=== PATIENT | female | born 1960 | race Caucasian/White ===

== ENCOUNTER → 2020-12-06 | Day surgery (SDC) | payer MEDICARE ==
[~2020-12-06] MED LIST: ATORVASTATIN CA10 MG PO; COZAAR50 MG PO; CYMBALTA20 MG PO; CYMBALTA60 MG PO; GLUCOTROL10 MG PO; LEVEMIR100 UNIT/1 SC; LEVOXYL100 MCG PO; LYRICA100 MG PO; MOBIC15 MG PO; NEURONTIN800 MG PO; NORVASC2.5 MG PO; NOVOLOG VI100 UNIT/1 SC; PERCOCET 5-3251 EACH PO; REGLAN10 MG PO; TRULICITY0.75 MG/0. SC; VITAMIN D3 COM1 EACH PO
[2020-12-06 07:23] LABS: HCT 38.9 % (37.0-47.0); HGB 13.3 g/dl (12.5-16.0); MCHC 34.2 g/dL (32.0-36.0); MCV 87.6 fL (78.0-100.0); MPV 11.7 fL (6.0-9.5); RBC 4.44 M/uL (4.20-5.40); RDW 12.8 % (11.5-14.0); WBC 8.5 K/uL (4.0-10.5)
[2020-12-06 07:44] LABS: ALBUMIN 3.5 g/dL (3.4-5.0); BILIRUBIN - TOTAL 0.6 mg/dL (0.2-1.0); BUN/CREAT RATIO (CALC) 21.3 RATIO; CREATININE 0.61 mg/dL (0.51-0.95); GLOBULIN (CALCULATION) 4.2 g/dL; POTASSIUM 3.3 mmol/L (3.5-5.1); TOTAL PROTEIN 7.7 g/dL (6.4-8.2)
== END | disposition home or self-care (01) ==
LOC: FAS 06:06
PROVIDERS: Orthopaedic Surgery
DX: G56.03 Carpal tunnel syndrome, bilateral upper limbs (principal); K21.9 Gastro-esophageal reflux disease without esophagitis; E11.43 Type 2 diabetes mellitus with diabetic autonomic (poly)neuropathy; K31.84 Gastroparesis; E03.9 Hypothyroidism, unspecified; J44.9 Chronic obstructive pulmonary disease, unspecified; I10 Essential (primary) hypertension; Z87.891 Personal history of nicotine dependence; Z79.4 Long term (current) use of insulin; Z79.899 Other long term (current) drug therapy
CPT/HCPCS: 36415; 80053; 93005; J2250; J2405; J2704; J3010; J7120

== ENCOUNTER 2022-05-02 03:13 | Emergency (ER) | payer MEDICARE ==
[2022-05-02 04:20] LABS: ECSTASY (MDMA) POSITIVE (NEGATIVE); MARIJUANA (THC) NEGATIVE (NEGATIVE)
[2022-05-02 04:21] LABS: AMPHETAMINES POSITIVE (NEGATIVE); BARBITURATES NEGATIVE (NEGATIVE); METHADONE NEGATIVE (NEGATIVE); OPIATES NEGATIVE (NEGATIVE)
[2022-05-02 04:22] LABS: OXYCODONE NEGATIVE (NEGATIVE)
== END 2022-05-02 04:37 | disposition home or self-care (01) ==
LOC: FER 03:13
PROVIDERS: Emergency Medicine
DX: T14.8XXA Other injury of unspecified body region, initial encounter (principal); J44.9 Chronic obstructive pulmonary disease, unspecified; I10 Essential (primary) hypertension; E11.9 Type 2 diabetes mellitus without complications; E03.9 Hypothyroidism, unspecified; Z79.890 Hormone replacement therapy; Z79.4 Long term (current) use of insulin; Z79.84 Long term (current) use of oral hypoglycemic drugs; Z79.899 Other long term (current) drug therapy; W57.XXXA Bitten or stung by nonvenomous insect and other nonvenomous arthropods, initial encounter
CPT/HCPCS: 80305; 99282